=== PATIENT | male | born 1955 | race African-American/Black ===

== ENCOUNTER → 2017-02-01 | Outpatient (REF) ==
[~2017-02-01] MED LIST: ASPIRIN 32325 MG/TAB PO; ASPIRIN 81M81 MG/TA2 PO; BACTRIM DS 8001 TAB PO; BRILINTA90 MG PO; MULTI VITAMINS1 TAB PO; NORVASC 10MG10 MG PO; ROBAXIN 75750 MG/TAB PO; TENORMIN 5050 MG/TAB PO; ULTRAM 50MG TAB50 MG PO; VIAGRA100 M1 PO; VOLTAREN 50MG T50 MG PO; ZANTAC 150MG T150 MG PO; ZESTRIL40 MG PO; ZOCOR 80MG80 MG PO
== END ==
LOC: WSOH 09:24
DX: Z02.89 Encounter for other administrative examinations (principal)

== ENCOUNTER → 2017-03-10 | Outpatient (REF) | LOC: WSOH 16:15 | DX: Z01.30 Encounter for examination of blood pressure without abnormal findings (principal) ==

== ENCOUNTER 2018-10-17 11:55 | Outpatient (RCR) | payer OTHER | END 2018-10-19 15:52 | disposition home or self-care (01) | LOC: COL.CR 11:55 | DX: Z02.89 Encounter for other administrative examinations (principal) ==

== ENCOUNTER 2018-10-31 06:21 | Day surgery (SDC) | payer OTHER ==
[~2018-10-31] VITALS: Ht 182.9 cm; Wt 113.7 kg
[2018-10-31] VITALS (13 sets, daily range): BP systolic 127–157; BP diastolic 70–106; PULSE 60–69; TEMP 97.9
[~2018-10-31 06:21] MED LIST changes: +LIPITOR 40MG TA40 MG PO; -NORVASC 10MG10 MG PO; +NORVASC 5MG5 MG/TAB PO; -ZOCOR 80MG80 MG PO
[2018-10-31 07:31] LABS: HEMATOCRIT 39.9 % (42.0-52.0); HEMOGLOBIN 14.2 g/dl (13.5-18.0); MEAN CELL VOLUME 89 fl (80.0-100.0); MEAN CORPUSCULAR HEMOGLOBIN 32 pg (27.0-31.0); MEAN CORPUSCULAR HGB CONC 36 g/dl (33.0-37.0); MEAN PLATELET VOLUME 11.2 fl (7.4-10.4); PLATELET COUNT 167 K/mm3 (130-400); RED BLOOD COUNT 4.51 M/mm3 (4.20-5.60)
[2018-10-31 07:34] LABS: PROTHROMBIN TIME 11.8 SECONDS (9.7-12.8)
[2018-10-31 07:44] LABS: CALCIUM 9.3 mg/dL (8.4-10.2); CREATININE, serum 1.03 (0.66-1.25); POTASSIUM 4.1 mmol/L (3.4-5.0)
[2018-10-31] MEDS ORDERED: GLUCOPHAGE500 MG/TAB PO (07:53)
[2018-10-31] MEDS ORDERED: NITROSTAT0.4 MG/TAB SL (07:53)
[2018-10-31] MEDS ORDERED: MASON NATURAL2000 IU PO (07:55)
[2018-10-31] MEDS ORDERED: TYLENOL 325MG325 MG PO (07:55)
[2018-10-31] MEDS ORDERED: EPA FISH OIL1 SGL PO (07:56)
[2018-10-31] MEDS ORDERED: HCTZ 25MG TAB25 MG PO (07:57)
[2018-10-31] MEDS ORDERED: VIAGRA100 M1 PO (07:58)
--- NOTE | 2018-10-31 08:40 | NUR ---
pT TO PROCEDURE,REPORT TO Margie Lopez.
--- NOTE | 2018-10-31 12:19 | NUR ---
3 ml of air removed from radial band.Bleeding at site immediately,reistilled 3 ml of air for a total of 11ml again.no bleeding at after air reinstilled.
--- NOTE | 2018-10-31 15:17 | NUR ---
Discharge instructions given to pt.Pt verbalizes understanding.INT removed,catheter tip intact.pt escorted out via wheelchair by this nurse.
== END 2018-10-31 15:18 | disposition home or self-care (01) ==
LOC: COL.CAR 06:21
PROVIDERS: Internal Medicine Cardiovascular Disease
DX: I25.10 Atherosclerotic heart disease of native coronary artery without angina pectoris (principal); Z95.5 Presence of coronary angioplasty implant and graft; I10 Essential (primary) hypertension; E11.9 Type 2 diabetes mellitus without complications; E78.2 Mixed hyperlipidemia; Z79.82 Long term (current) use of aspirin; Z79.899 Other long term (current) drug therapy; Z79.01 Long term (current) use of anticoagulants; Z87.891 Personal history of nicotine dependence; Z83.3 Family history of diabetes mellitus
CPT/HCPCS: J0153; J1644; J2250; J3010; Q9967